=== PATIENT | female | born 1995 | race African-American/Black ===

== ENCOUNTER 2017-01-31 11:19 | Emergency (ER) | payer OTHER ==
[~2017-01-31] VITALS: Ht 160 cm; Wt 76.2 kg
[2017-01-31 11:22] VITALS: BP 124/84
[2017-01-31 11:58] LABS: URINE BILIRUBIN NEGATIVE (Negative); URINE BLOOD NEGATIVE (Negative); URINE COLOR YELLOW; URINE GLUCOSE-RANDOM* NEGATIVE (Negative); URINE KETONES NEGATIVE (Negative); URINE NITRITE NEGATIVE (Negative); URINE PROTEIN (DIPSTICK) NEGATIVE (Negative); URINE SPECIFIC GRAVITY 1.025 (1.005-1.035); URINE UROBILINOGEN 0.2 E.U./dl (0.2-1.0)
[2017-01-31] MEDS ORDERED: FLEXERIL PO (12:01)
== END 2017-01-31 13:13 | disposition home or self-care (01) ==
LOC: ER 11:19
PROVIDERS: Emergency Medicine
DX: M54.9 Dorsalgia, unspecified (principal)